=== PATIENT | female | born 1995 | race Caucasian/White ===

== ENCOUNTER 2018-01-17 21:28 | Emergency (ER) | payer SELFPAY ==
[2018-01-17] MEDS ORDERED: Lidocaine 1%* 5 ML VIAL INJ ONE (22:04)
--- NOTE | 2018-01-17 22:24 | ED ---
Laceration/Wound HPI - HPI Summary HPI Summary: 22-year-old female presents with left middle finger laceration today. States she was taking out the recycling. She cut her finger on something recycling. She states the area continues to bleed. No numbness or tingling. She denies any foreign body in the wound. She has no medical conditions. Immunizations are up-to-date. No other injury. - History of Current Complaint Stated Complaint: LEFT MIDDLE FINGER LACERATION Time Seen by Provider: 01/17/18 22:08 Pain Intensity: 4 - Allergy/Home Medications Allergies/Adverse Reactions: Allergies Allergy/AdvReac Type Severity Reaction Status Date / Time No Known Allergies Allergy Verified 08/01/15 18:18 PMH/Surg Hx/FS Hx/Imm Hx Endocrine/Hematology History: Denies: Hx Anticoagulant Therapy Cardiovascular History: Denies: Hx Myocardial Infarction Infectious Disease History: No Infectious Disease History: Denies: Traveled Outside the [place] in Last 30 Days - Family History Known Family History: Negative: Diabetes - Social History Alcohol Use: Occasionally Substance Use Type: Reports: None Smoking Status (MU): Never Smoked Tobacco Review of Systems Negative: Fever Negative: Chest Pain Negative: Shortness Of Breath Positive: Other - left middle finger skin avulsion All Other Systems Reviewed And Are Negative: Yes Physical Exam Triage Information Reviewed: Yes Vital Signs On Initial Exam: Initial Vitals Temp Pulse Resp BP Pulse Ox 97.7 F 71 16 136/83 100 01/17/18 21:31 01/17/18 21:31 01/17/18 21:31 01/17/18 21:31 01/17/18 21:31 Vital Signs Reviewed: Yes Appearance: Positive: Well-Appearing Skin: Positive: Other - 1cm skin avulsion left middle finger Head/Face: Positive: Normal Head/Face Inspection Eyes: Positive: Normal, Conjunctiva Clear ENT: Positive: Pharynx normal Respiratory/Lung Sounds: Positive: Clear to Auscultation, Breath Sounds Present Cardiovascular: Positive: Normal, RRR Musculoskeletal: Positive: Strength/ROM Intact - left middle finger, Other - capillary refill<2 secs Neurological: Positive: Normal Psychiatric: Positive: Normal Procedures - Laceration/Wound Repair 1 Location: Other - left middle finger Description: Irregular Length, Depth and Shape: 1cm avulsion Irrigated w/ Saline (ccs): 30 Sterile Dressing Applied?: Yes - surgicel, xeroform, gauze, coband Diagnostics - Vital Signs Vital Signs Temp Pulse Resp BP Pulse Ox 01/17/18 21:31 97.7 F 71 16 136/83 100 - Laboratory Lab Statement: Any lab studies that have been ordered have been reviewed, and results considered in the medical decision making process. Laceration Repair Course/Dx - Course Course Of Treatment: 22-year-old female presents with left middle finger laceration today. States she was taking out the recycling. She cut her finger on something recycling. She states the area continues to bleed. No numbness or tingling. She denies any foreign body in the wound. She has no medical conditions. Immunizations are up-to-date. No other injury. On exam he has an avulsion to left middle finger at distal tip. Neurovascularly intact. Clean area and place Surgicel and Xeroform gauze and Coband. Told to keep area intact for 48 hours. Told to change dressing afterwards. Patient understands and agrees plan. - Differential Dx Differental Diagnoses: Abrasion, Abscess, Laceration - Clinical Impression Provider Diagnoses: Skin avulsion Discharge - Sign-Out/Discharge Documenting (check all that apply): Patient Departure - Discharge Plan Condition: Good Disposition: HOME Patient Education Materials: Skin Avulsion (ED) Referrals: No Primary Care Phys,NOPCP [Primary Care Provider] - Additional Instructions: Keep area in pressure dressing for 48 hours, after 48 hours check for sign of infection leaving absorbable hemostat on wound and rewrap with pressure dressing for another 24 hours Keep area covered afterwards Follow up with primary within 5 days Return to ED if develop any new or worsening symptoms - Billing Disposition and Condition Condition: GOOD Disposition: Home
[2018-01-17 22:58] VITALS: BP 102/66
== END 2018-01-17 22:30 | disposition home or self-care (01) ==
LOC: ED 21:28
DX: S61.213A Laceration without foreign body of left middle finger without damage to nail, initial encounter (principal); W45.8XXA Other foreign body or object entering through skin, initial encounter; Y93.H9 Activity, other involving exterior property and land maintenance, building and construction; Y92.9 Unspecified place or not applicable
CPT/HCPCS: 12001; 99282

== ENCOUNTER 2018-04-12 18:08 | Emergency (ER) | payer OTHER ==
[2018-04-12 18:55] LABS: ABS Basophils 0 10^3/ul (0-0.2); ABS Eosinophils 0.1 10^3/ul (0-0.6); ABS Monocytes 0.5 10^3/ul (0-0.8); ABS Neutrophils 5.3 10^3/ul (1.5-7.7); ABS Nucleated RBC 0 10^3/ul; Eosinophil % 1.2 % (0-6); Hematocrit 42 % (35-47); Hemoglobin 14.2 g/dl (12.0-16.0); Mean Corpuscular HGB Conc 34 g/dl (31-36); Mean Corpuscular Hemoglobin 30 pg (27-31); Mean Corpuscular Volume 87 fL (80-97); Mean Platelet Volume 9.1 fL (7.4-10.4); Nucleated Red Blood Cells % 0.1; Platelet Count 208 10^3/ul (150-450); Red Blood Count 4.82 10^6/ul (4.00-5.40); Red Cell Distribution Width 13 % (10.5-15); White Blood Count 7.9 10^3/ul (3.5-10.8)
--- NOTE | 2018-04-12 20:05 | ED ---
HPI Cardiac - HPI Summary HPI Summary: Sent from 5 starting care to ED for further evaluations and 3 episodes of possible SVT over the past 3 weeks. Patient states she is having palpitations that feel like putting in her chest with pressure and mild associated SOB. Patient was sent from 5 to urgent care by EMS who gave 6 mg of adenosine initially which did not resolve tachycardia, then 12 mg of adenosine which resolved tachycardia. Patient denies any active symptoms here in the ED. Patient states prior to episodes lasted for about 20 or 30 minutes and then went away after she sat down and rested. Denies symptoms of illness including fever, cough, sore throat, CP, N/V/V abdominal pain, change in urine, change in BM. Patient on nexplanon, denies history of blood clots, recent surgery or trauma, history of immobility, history of exertional CP or SOB. Medical history is none. Denies prior cardiac history. Nonsmoker, denies EtOH, recreational drug use, caffeine or energy drinks. - History of Current Complaint Chief Complaint: EDDysrhythmPalp Stated Complaint: PALPITATIONS Time Seen by Provider: 04/12/18 18:20 Hx Obtained From: Patient Onset/Duration: Started Weeks Ago Timing: Intermittent, Lasting Minutes Initial Severity: Moderate Current Severity: None Pain Intensity: 0 Pain Scale Used: 0-10 Numeric Chest Pain Radiates: No Aggravating Factor(s): Nothing Alleviating Factor(s): Nothing Associated Signs and Symptoms: Positive: Negative, Shortness of Breath, Palpitations - Risk Factors Pulmonary Embolism Risk Factors: Negative Cardiac Risk Factors: Negative - Allergy/Home Medications Allergies/Adverse Reactions: Allergies Allergy/AdvReac Type Severity Reaction Status Date / Time No Known Allergies Allergy Verified 08/01/15 18:18 PMH/Surg Hx/FS Hx/Imm Hx Endocrine/Hematology History: Denies: Hx Anticoagulant Therapy Cardiovascular History: Denies: Hx Cardiac Arrest, Hx Myocardial Infarction History: Denies: Hx Dialysis Neurological History: Denies: Hx CVA Infectious Disease History: No Infectious Disease History: Reports: Traveled Outside the [place] in Last 30 Days - [place] - Family History Known Family History: Negative: Diabetes - Social History Alcohol Use: Weekly Substance Use Type: Reports: Marijuana Substance Use Comment - Amount & Last Used: occassionally Smoking Status (MU): Never Smoked Tobacco Review of Systems Constitutional: Negative Eyes: Negative ENT: Negative Positive: Palpitations Positive: Shortness Of Breath Gastrointestinal: Negative Genitourinary: Negative Musculoskeletal: Negative Skin: Negative Neurological: Negative Psychological: Normal All Other Systems Reviewed And Are Negative: Yes Physical Exam Triage Information Reviewed: Yes Vital Signs On Initial Exam: Initial Vitals Pulse Resp BP Pulse Ox 84 17 129/91 100 04/12/18 18:07 04/12/18 18:07 04/12/18 18:07 04/12/18 18:07 Vital Signs Reviewed: Yes Appearance: Positive: Well-Appearing Skin: Positive: Warm Head/Face: Positive: Normal Head/Face Inspection Eyes: Positive: Normal Neck: Positive: Supple Respiratory/Lung Sounds: Positive: Clear to Auscultation Cardiovascular: Positive: Normal Abdomen Description: Positive: Nontender Musculoskeletal: Positive: Normal Neurological: Positive: Normal Psychiatric: Positive: Normal AVPU Assessment: Alert - [place] Coma Scale Best Eye Response: 4 - Spontaneous Best Motor Response: 6 - Obeys Commands Best Verbal Response: 5 - Oriented Coma Scale Total: 15 Diagnostics - Vital Signs Vital Signs Temp Pulse Resp BP Pulse Ox 04/12/18 19:37 81 17 125/84 97 04/12/18 18:37 94 21 124/92 99 04/12/18 18:16 85 15 97 04/12/18 18:10 99.1 F 87 16 129/61 97 04/12/18 18:07 84 17 129/91 100 - Laboratory Lab Results: Lab Results 04/12/18 04/12/18 Range/Units 18:41 18:41 WBC 7.9 (3.5-10.8) 10^3/ul RBC 4.82 (4.00-5.40) 10^6/ul Hgb 14.2 (12.0-16.0) g/dl Hct 42 (35-47) % MCV 87 (80-97) fL MCH 30 (27-31) pg MCHC 34 (31-36) g/dl RDW 13 (10.5-15) % Plt Count 208 (150-450) 10^3/ul MPV 9.1 (7.4-10.4) fL Neut % (Auto) 67.5 (38-83) % Lymph % (Auto) 25.0 (25-47) % Oliver % (Auto) 5.9 (0-7) % Eos % (Auto) 1.2 (0-6) % Baso % (Auto) 0.4 (0-2) % Absolute Neuts (auto) 5.3 (1.5-7.7) 10^3/ul Absolute Lymphs (auto) 2.0 (1.0-4.8) 10^3/ul Absolute Monos (auto) 0.5 (0-0.8) 10^3/ul Absolute Eos (auto) 0.1 (0-0.6) 10^3/ul Absolute Basos (auto) 0 (0-0.2) 10^3/ul Absolute Nucleated RBC 0 10^3/ul Nucleated RBC % 0.1 Sodium 139 (135-145) mmol/L Potassium 3.9 (3.5-5.0) mmol/L Chloride 107 (101-111) mmol/L Carbon Dioxide 26 (22-32) mmol/L Anion Gap 6 (2-11) mmol/L BUN 23 (6-24) mg/dL Creatinine 1.03 H (0.51-0.95) mg/dL Est GFR ( Amer) 81.1 (>60) Est GFR (Non-Af Amer) 67.0 (>60) BUN/Creatinine Ratio 22.3 H (8-20) Glucose 100 (70-100) mg/dL Calcium 9.4 (8.6-10.3) mg/dL Total Bilirubin 0.50 (0.2-1.0) mg/dL AST 16 (13-39) U/L ALT 13 (7-52) U/L Alkaline Phosphatase 48 (34-104) U/L Troponin I 0.01 (<0.04) ng/mL C-Reactive Protein 1.74 (<8.01) mg/L Total Protein 6.7 (6.4-8.9) g/dL Albumin 4.1 (3.2-5.2) g/dL Globulin 2.6 (2-4) g/dL Albumin/Globulin Ratio 1.6 (1-3) TSH 1.16 (0.34-5.60) mcIU/mL Result Diagrams: 04/12/18 18:41 04/12/18 18:41 Lab Statement: Any lab studies that have been ordered have been reviewed, and results considered in the medical decision making process. Disposition - Course Course Of Treatment: Sent from 5 starting care to ED for further evaluations and 3 episodes of possible SVT over the past 3 weeks. Patient states she is having palpitations that feel like putting in her chest with pressure and mild associated SOB. Patient was sent from 5 to urgent care by EMS who gave 6 mg of adenosine initially which did not resolve tachycardia, then 12 mg of adenosine which resolved tachycardia. Patient denies any active symptoms here in the ED. Patient states prior to episodes lasted for about 20 or 30 minutes and then went away after she sat down and rested. Denies symptoms of illness including fever, cough, sore throat, CP, N/V/V abdominal pain, change in urine, change in BM. Patient on nexplanon, denies history of blood clots, recent surgery or trauma, history of immobility, history of exertional CP or SOB. Medical history is none. Denies prior cardiac history. Nonsmoker, denies EtOH, recreational drug use, caffeine or energy drinks. Physical exam unremarkable. EKG normal. Chest x-ray normal. Labs unremarkable. Patient advised to follow up with cardiology for Holter monitor. - Differential Dx - Cardiopulmonary Differential Diagnoses - Cardiopulmonary: Acute Coronary, Atrial Fibrillation, Pulmonary Embolism - Diagnoses Provider Diagnoses: SVT (supraventricular tachycardia) Discharge - Sign-Out/Discharge Documenting (check all that apply): Patient Departure - Discharge Plan Condition: Stable Disposition: HOME Patient Education Materials: Supraventricular Tachycardia (ED) Referrals: No Primary Care Phys,NOPCP [Primary Care Provider] - Toi Romero MD [Medical Doctor] - Additional Instructions: Follow up with cardiology Dr Romero for further evaluation. Avoid stimulants like caffeine, energy drinks in the meantime. Return to the ED for any new or worsening symptoms. - Billing Disposition and Condition Condition: STABLE Disposition: Home
[2018-04-12 20:28] VITALS: BP 136/79
== END 2018-04-12 20:40 | disposition home or self-care (01) ==
LOC: ED 18:08
DX: I47.1 Supraventricular tachycardia (principal); R06.02 Shortness of breath
CPT/HCPCS: 36415; 71045; 80053; 84443; 84484; 85025; 86140; 93005; 99283